=== PATIENT | female | born 1975 | race Caucasian/White ===

== ENCOUNTER 2019-01-27 07:52 | Emergency (ER) | payer OTHER ==
[~2019-01-27] VITALS: Wt 74.3 kg
[2019-01-27 07:57] VITALS: BP 150/68; PULSE 63; RESP 18
[2019-01-27] MEDS ORDERED: KETOROLAC 30 MG INJ IM STA (08:13)
[2019-01-27] MEDS ORDERED: NAPR-985 PO (08:18)
[2019-01-27] MEDS ORDERED: PRED20TA PO (08:18)
--- NOTE | 2019-01-27 08:22 | ERD ---
ER Documentation Chief Complaint Chief Complaint back pain x 1 week HPI 43-year-old female presents to the ED complaining of 1-1/2 weeks of intermittent left sided neck pain radiating down to her left shoulder, left arm and left middle finger. She also states pain radiates towards her left anterior chest and causes "spasms ". 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 She states exercising has helped her symptoms. She denies any direct trauma. Denies shortness of breath, leg swelling or any other symptoms. No history of similar symptoms. ROS All systems reviewed and are negative except as per history of present illness. Medications Home Meds Active Scripts Prednisone* (Prednisone*) 20 Mg Tab, 20 MG PO DAILY for 5 Days, #5 TAB Prov:PANFILO MATTHEWS PA-C 01/27/19 Naproxen* (Naprosyn*) 500 Mg Tablet, 500 MG PO BID PRN for PAIN AND/OR INFLAMM ATION, #30 TAB Prov:PANFILO MATTHEWS PA-C 01/27/19 Allergies Allergies: Coded Allergies: No Known Allergy (Unverified , 01/27/19) PMhx/Soc Medical and Surgical Hx: pt denies Medical Hx, pt denies Surgical Hx Hx Alcohol Use: No Hx Substance Use: No Hx Tobacco Use: No Physical Exam Vitals Vital Signs Date Temp Pulse Resp B/P (MAP) Pulse Ox O2 O2 Flow FiO2 Time Delivery Rate 01/27/19 98.4 63 18 150/68 99 07:57 (95) Physical Exam Const: No acute distress Head: Atraumatic Eyes: Normal Conjunctiva ENT: Normal External Ears, Nose and Mouth. Neck: No meningismus. + Mild tenderness to palpation left paracervical spinal area. Mild pain when turning neck to the left. No midline tenderness. Resp: Clear to auscultation bilaterally Cardio: Regular rate and rhythm, no murmurs Back: No midline or flank tenderness Ext: No cyanosis, or edema. + 4/ 5 motor strength of left upper extremity, right upper extremity normal. Median, radial, ulnar nerves intact. + Mild tenderness of the left radial styloid, + Renata Neuro: M/S: Alert and oriented Face: EOMI, face and pharynx with normal sensation and function Motor: Normal strength throughout Sensation: Normal sensation throughout Speech: Normal Cerebel: Normal coordination Normal gait Psych: Normal Mood and Affect Results 24 hrs Laboratory Tests Test 01/27/19 08:24 POC Beta HCG, Qualitative NEGATIVE Current Medications Medications Dose Sig/Ritu Start Time Status Last (Trade) Ordered Route PRN Stop Time Admin Dose Reason Admin Ketorolac 30 mg ONCE STAT 01/27/19 DC Tromethamine IM 08:13 01/27/19 (Toradol) 08:15 Procedures/MDM PROCEDURES: 12-lead EKG interpretation as interpeted by Dr. Marcelo Sinus bradycardia with rate of 58 beats per minute Normal axis Normal intervals No acute ST or T wave changes suggestive of acute ischemia or STEMI. Volar wrist splint Assessment: Neurovascularly intact post splint placement with good fit. ED COURSE: The patient was given IM Toradol The medication was well tolerated and the patient had market improvement in symptoms. The patient remained stable throughout ED course. MEDICAL DECISION MAKIN-year-old female presents with signs symptoms consistent with cervical radiculopathy and tendinopathy. She did complain of the left chest spasms therefore EKG was obtained and unremarkable. I have low suspicion for MS, DV T/PE, CVA or any other emergent condition. She was given IM Toradol here with improvement of her symptoms. Patient was placed in a volar wrist splint prior to discharge. She was given Rx prednisone naproxen. I recommended follow-up with her PCP for possible referral to an orthopedist. History and physical not consistent with compartment syndrome. PRESCRIPTIONS: Prednisone, naproxen SPECIALIST FOLLOW UP RECOMMENDED: Ortho Patient has been advised to follow up with primary care in 1-2 days. Departure Diagnosis: Primary Impression: Cervical radiculopathy Additional Impression: De Quervain's fracture of left wrist Condition: Stable Patient Instructions: What Is De Quervain Tenosynovitis?, Treating De Quervain's Tenosynovitis, Radiculopathy, Cervical Referrals: [facility] 7 a.m.- 11 p.m. Every Day of the Week NO APPOINTMENT OR AUTHORIZATION NEEDED SO [facility] Hours: Mon-Fri 9:00 AM - 5:00 PM Additional Instructions: Wear the wrist splint for the next few days and take the naproxen and prednisone. If your symptoms continue to persist or get worse, see your primary care doctor and ask for referral to an orthopedist for physical therapy and corticosteroid injections. Return here for any new or worsening symptoms. PANFILO MATTHEWS PA-C Jan 27, 2019 08:22
== END 2019-01-27 08:39 | disposition home or self-care (01) ==
LOC: FTE 07:52
DX: M54.12 Radiculopathy, cervical region (principal); M65.4 Radial styloid tenosynovitis [de Quervain]
CPT/HCPCS: 29125; 81025; 93005; 96372; J1885; Z7502